=== PATIENT | female | born 1965 | race Caucasian/White ===

== ENCOUNTER 2018-11-12 19:41 | Emergency (ER) | payer BC, SELFPAY ==
[2018-11-12 19:41] VITALS: BP 111/75; PULSE 114; RESP 16; TEMP 36.3; O2SAT 97; BMI 26.4
--- NOTE | 2018-11-12 19:45 | ED.RN ---
Asked pt twice if she wanted to file workman's compensation, she declined both times. pt states she has a herniated disc from 20 yrs ago and believes this is the cause.
--- NOTE | 2018-11-12 20:21 | ED.VISSUMM ---
- ER Visit Summary Date of Service: 11/12/18 Chief Complaint: Back pain History of Present Illness: The patient is a 53 F presenting with back pain. She states this started while at work. She states she was bending over and began having pain in her lower back. It does not radiate to her legs. She has no bowel or bladder incontinence. She has tried ibuprofen at home. She states it feels like her muscles are spasming. Denies fever or other complaints. Physical Examination: Vitals are stable. Patient is afebrile. Alert no acute distress. HEENT exam is unremarkable. Neck is supple. Lungs are clear and equal bilaterally. Heart is regular rate and rhythm. Back: bilateral paraspinal lumbar muscle tenderness, no midline tenderness Extremities are unremarkable. Skin is warm and dry. No focal neurologic deficit. Normal strength and sensation Remainder of exam is unremarkable. Emergency Department Course and Treatment: Patient was given Toradol, Norflex IM. She is given prescription for Naprosyn and Flexeril. She is advised to follow up with her primary care physician. Advised return to ED if worsening complaints. Disposition: Discharge home Impression: Lumbar strain This note was generated with [employer] dictation software. It may contain incorrect words, spelling, and punctuation that were not noted in review of the chart prior to signing ED Disposition - Plan for ED Patient: Referrals: Chao Shoemaker III, MD [Primary Care Provider] -
--- NOTE | 2018-11-12 20:24 | ED.DEP ---
ED Disposition - Plan for ED Patient: Instructions: ED Sprain Strain Lumbar Prescriptions: Naproxen [Naprosyn] 500 mg PO BID PRN #20 tablet Cyclobenzaprine [Flexeril] 10 mg PO TID PRN #20 tablet PRN Reason: Muscle Spasm Referrals: Chao Shoemaker III, MD [Primary Care Provider] -
[2018-11-12] MEDS: Ketorolac 60 MG/2 ML Vial IM (20:59)
[2018-11-12] MEDS: Orphenadrine 60 MG/2 ML Ampul IM (20:59)
[2018-11-12 21:17] VITALS: BP 129/84; PULSE 71; RESP 16; O2SAT 96
== END 2018-11-12 21:18 | disposition home or self-care (01) ==
LOC: ED 20:25
PROVIDERS: Emergency Provider Emergency Medicine; Family Provider Family Medicine; PCP Family Medicine
DX: S39.012A Strain of muscle, fascia and tendon of lower back, initial encounter (principal); X50.1XXA Overexertion from prolonged static or awkward postures, initial encounter; Y93.9 Activity, unspecified; Y92.89 Other specified places as the place of occurrence of the external cause; Y99.0 Civilian activity done for income or pay; E11.9 Type 2 diabetes mellitus without complications; I10 Essential (primary) hypertension; F31.9 Bipolar disorder, unspecified; Z79.84 Long term (current) use of oral hypoglycemic drugs; Z79.82 Long term (current) use of aspirin; Z79.899 Other long term (current) drug therapy
CPT/HCPCS: 96372; 99282

== ENCOUNTER → 2019-10-03 09:34 | Outpatient (CLI) | payer BC, SELFPAY ==
--- NOTE | 2019-10-03 09:35 | RAD_ITS ---
STUDY: AIR-CONTRAST UPPER GI SERIES. REASON FOR EXAM: Female, 54 years old. VOMITING X 3 MOS., WT LOSS 12#. 23 IMAGES FLUOROSCOPY TIME (if supplied): ( 46 seconds ) minutes/seconds TECHNIQUE: The patient ingested barium. Multiple images of the esophagus, stomach and duodenum were obtained. COMPARISON: None. FINDINGS: The esophagus is unremarkable. There is no evidence of obstruction. No evidence of gastroesophageal reflux. The stomach and duodenum are unremarkable. No evidence of ulceration. No abnormalities present. IMPRESSION: Unremarkable air contrast upper GI series. Electronically Signed: Jorge Luis Pradhan, at 14:07 EST , Service support , STUDY: SMALL BOWEL FOLLOW-THROUGH EXAMINATION. REASON FOR EXAM: Female, 54 years old. VOMITING X 3 MOS., WT LOSS 12#. 23 IMAGES FLUOROSCOPY TIME (if supplied): ( 46 seconds ) minutes/seconds TECHNIQUE: The patient ingested barium. A small bowel follow-through examination was then obtained. COMPARISON: None. FINDINGS: The small bowel transit is within normal limits. There is no evidence of intrinsic or extrinsic small bowel disease. The terminal ileum is unremarkable. RAD/Upper GI/w Small Bowel IMPRESSION: Unremarkable small bowel examination. Electronically Signed: Jorge Luis Pradhan, at 14:09 EST , Service support ,
== END ==
LOC: RAD 09:34
PROVIDERS: PCP Family Medicine; Referring Provider Nurse Practitioner Family; Visit Provider Nurse Practitioner Family
DX: R11.10 Vomiting, unspecified (principal)
CPT/HCPCS: 74246; 74248

== ENCOUNTER → 2020-03-26 09:39 | Outpatient (CLI) | payer MEDICAID, SELFPAY ==
--- NOTE | 2020-03-26 10:00 | RAD_ITS ---
STUDY: X-RAY - ESOPHAGUS (BARIUM SWALLOW) WITH FLUOROSCOPY REASON FOR EXAM: Female, 54 years old. DYSPHAGIA AFTER EATING x2 MONTHS, WORSENING LAST FEW WEEKS -- NO PREVIOUS SURGERIES TECHNIQUE: 14 view(s) of the esophagus were obtained following swallowing of barium. FLUOROSCOPY TIME (if supplied): (0:32) minutes/seconds COMPARISON: None. FINDINGS: There is no demonstrated esophageal foreign body. There is no demonstrated stricture or mucosal abnormality. Normal gastroesophageal junction, without a demonstrated hiatal hernia. The patient ingested a 12 mm tablet of barium without any difficulty. Normal visualized aortic arch and descending thoracic aorta. Normal visualized pulmonary parenchyma. Normal visualized osseous structures of the thorax. RAD/Esophagus Dual Contrast IMPRESSION: Normal plain film x-ray examination (barium swallow) of the esophagus. Electronically Signed: Jorge Luis Pradhan, at 12:21 EDT , Service support ,
== END ==
PROVIDERS: PCP Family Medicine; Referring Provider Nurse Practitioner Family; Visit Provider Nurse Practitioner Family
DX: R13.10 Dysphagia, unspecified (principal)
CPT/HCPCS: 74221

== ENCOUNTER 2021-04-25 21:40 | Emergency (ER) | payer MEDICAID, SELFPAY ==
[2021-04-25 21:41] VITALS: BP 183/111; PULSE 136; RESP 18; TEMP 37; O2SAT 97; BMI 29.8
--- NOTE | 2021-04-25 21:49 | EKG12_ITS ---
Test Reason : DYSRHYTHMIA Blood Pressure : / mmHG Vent. Rate : 124 BPM Atrial Rate : 124 BPM P-R Int : 152 ms QRS Dur : 080 ms QT Int : 284 ms P-R-T Axes : 053 031 -19 degrees QTc Int : 408 ms Sinus tachycardia Nonspecific ST and T wave abnormality Abnormal ECG When compared with ECG of 30-AUG-2016 17:57, ST now depressed in Lateral leads Nonspecific T wave abnormality, worse in Anterolateral leads Confirmed by MOO HERNANDEZ, JEFF ([id number]), pictures editor CASSIUS CORTES ([id number]) on 04/28/2021 9:23:03 AM Referred By: KIKE Confirmed By:JEFF CORTÉS MD
--- NOTE | 2021-04-25 21:52 | EX.ED.DYSGE1 ---
HPI History of Present Illness Chief Complaint: Hyperglycemia Informant: patient Onset/Context/Timing Onset: - (Critical blood sugar level) Context: - (Unknown) Timing: Continuous Quality: Blood sugar greater than 600 Current Severity: Blood sugar greater than 600 Maximum Severity: Blood sugar greater than 600 Worsened by: Noncompliance with diet Relieved by: Nothing Associated Symptoms Associated Symptoms: Thirst, polydipsia and polyuria Narrative Narrative: Patient is a 55-year-old woman with type 1 diabetes. She initially was on Metformin. She is now on insulin. She does have history of lung problems. She denies hypertension, dyslipidemia. She is a smoker. Denies drinking. She denies headache, visual, ocular auditory symptoms. She denies chest pain. Denies shortness of breath. She denies vomiting or diarrhea. She denies dysuria or hematuria. She denies paresthesia, anesthesia or motor weakness. Patient states her doctor called her because of a high blood sugar level from blood work obtained earlier today. She was asked to check her blood sugar and her blood sugar at home was greater than 600. She was advised to come to the emergency department with [facility] Medical History (Updated 04/25/21 @ 23:[address] Santos Prince MD) Asthma Bipolar 1 disorder Depression Diabetes mellitus Fatty (change of) liver, not elsewhere classified HTN (hypertension) Hyperlipemia Migraine Rosacea Home Medications risperidone 1 tab PO QHS 11/12/18 [History Last Taken Unknown] amantadine HCl 100 mg PO DAILY 04/25/21 [History Last Taken Unknown] atorvastatin 20 mg PO DAILY 04/25/21 [History Last Taken Unknown] cholecalciferol (vitamin D3) [Vitamin D3] 50 mcg PO DAILY 04/25/21 [History Last Taken Unknown] dulaglutide [Trulicity] 1.5 mg SUBCUT QWEEK 04/25/21 [History Last Taken Unknown] glimepiride 2 mg PO DAILY 04/25/21 [History Last Taken Unknown] hydroxyzine pamoate 25 mg PO BID PRN 04/25/21 [History Last Taken Unknown] insulin glargine [Lantus Solostar U-100 Insulin] 26 unit SUBCUT QHS 04/25/21 [History Last Taken Unknown] lamotrigine 150 mg PO DAILY 04/25/21 [History Last Taken Unknown] metformin 500 mg PO DAILY 04/25/21 [History Last Taken Unknown] Allergy/AdvReac Type Severity Reaction Status Date / Time No Known Allergies Allergy Verified 04/25/21 21:44 Social History (Updated 04/25/21 @ 21:[address] Santos Prince MD) household members: spouse Smoking Status: Never smoker alcohol intake: former substance use type: does not use ROS ROS ED Constitutional Constitutional ED: Denies chills, fever(s), subjective, sweats or weight loss Eyes Eyes: Denies blurry vision, change in vision or diplopia ENT ENT ED: Denies ear pain, rhinorrhea or sore throat Cardiovascular Cardiovascular: Denies chest pain, orthopnea, palpitations, paroxysmal nocturnal dyspnea or racing heartbeat Respiratory/Chest Respiratory/Chest: Denies dyspnea, dyspnea on exertion, orthopnea or paroxysmal nocturnal dyspnea Gastrointestinal Gastrointestinal: Reports nausea; Denies abdominal pain, constipation, diarrhea or vomiting Genitourinary Genitourinary ED: Reports urinary frequency; Denies dysuria or hematuria Musculoskeletal Musculoskeletal: Denies arthralgias, back pain, myalgias or neck pain Integumentary Denies rash Neurologic Neurologic: Denies headache(s), paresthesias or weakness Endocrine Endocrinology: Denies polydipsia, polyphagia or polyuria Allergic/Immunologic Allergic/Immunologic ED: Denies mouth swelling, tongue swelling or urticaria EXAM Physical Exam Const Vital Signs: 04/25/21 21:41 04/25/21 22:14 Temperature 98.6 F Temperature Source Temporal Pulse Rate 136 H 111 H Respiratory Rate 18 19 H Blood Pressure 183/111 H 156/86 H Blood Pressure Mean 135 109 Pulse Ox 97 97 Oxygen Delivery Method Room Air Room Air Positive well nourished, well developed and obese General Appearance ED: well developed Nutritional Appearance: obese HEENT Reports TM's clear and dry mucous membranes HEENT Narrative: Head is atraumatic normocephalic. Ears normal. Nares patent. Posterior pharynx unremarkable. Tympanic Membrane ED: Yes TM's clear Mouth ED: Yes dry mucous membranes Mouth: dry mucous membranes Eyes PERRL and EOMs intact bilaterally General Eye ED: Negative for pale conjunctiva or scleral icterus Neck no lymphadenopathy, supple and no JVD General: Negative for tenderness Chest Wall inspection of chest normal Resp normal respiratory effort and clear to auscultation bilaterally Cardio regular rhythm, S1 normal heart sound, S2 normal heart sound and no murmurs Rate: tachycardic GI normal to inspection, nondistended, normoactive bowel sounds, non-tender and non-distended Back/Spine no CVA tenderness Thoracic Spine / Upper Back: Negative for paraspinal muscle tenderness Lumbar Spine / Lower Back: Negative for lumbar spinal tenderness Extremity normal to inspection General Extremety ED: Negative for edema or tenderness General Extremity: Negative for edema Neuro oriented x3, CN's II-XII intact bilaterally and no sensory deficits noted Sensorium / Orientation: alert Motor Exam: strength 5/5 throughout Psych mental status grossly normal Skin no rashes or lesions noted and no wounds MDM MDM MDM Narrative Medical decision making narrative: Hyperglycemia order set was initiated since blood sugars greater than 600. 2 L of normal saline was ordered. Work-up to determine if she has hyper osmolar nonketotic hyperglycemia versus DKA. If blood sugar is truly elevated will treat with insulin after 2 L normal saline has infused. EKG was obtained to assess rhythm and rule out ischemia. UA to assess for ketones and rule out urinary tract infection. Comprehensive metabolic panel to assess electrolytes, anion gap and blood sugar. Since she is clinically dehydrated also to assess renal function. Patient was informed the importance of compliant with medication and diet. When she receives her 2 L of fluid will discharge to home to follow-up with her physician. No adjustments have been made with her medications since she is not compliant with her diet. Lab Data Attestation: I reviewed the patient's lab results. Lab results narrative: Blood sugar is 449. There is no evidence of DKA. Will treat with subcu insulin. Labs: Laboratory Results - last 24 hr 04/25/21 04/25/21 04/25/21 21:56 22:00 22:00 WBC 8.1 RBC 5.01 Hgb 14.7 Hct 43.4 MCV 86.6 MCH 29.3 MCHC 33.9 RDW Std Deviation 41.6 RDW Coeff of Lizbet 13.2 Plt Count 229 MPV 9.0 Immature Gran % (Auto) 0.500 Neut % (Auto) 64.1 Lymph % (Auto) 22.6 [place] % (Auto) 11.7 H Eos % (Auto) 0.7 Baso % (Auto) 0.4 Absolute Neuts (auto) 5.2 Absolute Lymphs (auto) 1.82 Nucleated RBC % 0 Sodium 135 L Potassium 3.6 Chloride 100 Carbon Dioxide 25.0 Anion Gap 10 BUN 20 H Creatinine 1.14 H Estim Creat Clear Calc 48.15 Est GFR (MDRD) Af Amer 64 Est GFR (MDRD) Non-Af 53 L BUN/Creatinine Ratio 17.5 Glucose 449 H Calcium 9.6 Total Bilirubin 0.40 AST 32 ALT 79 H Alkaline Phosphatase 171 H Total Protein 8.2 Albumin 3.7 Globulin 4.5 H Albumin/Globulin Ratio 0.8 L Urine Color Urine Clarity Urine pH Ur Specific [place] Urine Protein Urine Glucose (UA) Urine Ketones Urine Occult Blood Urine Nitrite Urine Bilirubin Urine Urobilinogen Ur Leukocyte Esterase Urine RBC Urine WBC Ur Squamous Epith Cells Urine Bacteria Urine Mucus Acetone Level POC Glucose 466 H* 04/25/21 04/25/21 22:00 22:40 WBC RBC Hgb Hct MCV MCH MCHC RDW Std Deviation RDW Coeff of [place] Plt Count MPV Immature Gran % (Auto) Neut % (Auto) Lymph % (Auto) [place] % (Auto) Eos % (Auto) Baso % (Auto) Absolute Neuts (auto) Absolute Lymphs (auto) Nucleated RBC % Sodium Potassium Chloride Carbon Dioxide Anion Gap BUN Creatinine Estim Creat Clear Calc Est GFR (MDRD) Af Amer Est GFR (MDRD) Non-Af BUN/Creatinine Ratio Glucose Calcium Total Bilirubin AST ALT Alkaline Phosphatase Total Protein Albumin Globulin Albumin/Globulin Ratio Urine Color Yellow Urine Clarity Clear Urine pH 6.0 Ur Specific [place] 1.015 Urine Protein Negative Urine Glucose (UA) 1000 H Urine Ketones 15 H Urine Occult Blood Negative Urine Nitrite Negative Urine Bilirubin Negative Urine Urobilinogen Normal Ur Leukocyte Esterase Negative Urine RBC 0 SEEN Urine WBC 0-5 SEEN Ur Squamous Epith Cells 0-5 SEEN Urine Bacteria 0 SEEN Urine Mucus 0 SEEN Acetone Level NEGATIVE POC Glucose Rhythm Strip Rhythm Strip: Sinus Tach Rate: 132 Ectopy: None EKG Initial EKG: Interpretation: Sinus Tachycardia (Ventricular rate is 124. [place] interval is 152 ms. QRS duration 80 ms. QT duration 284 ms. There is no ossific ST-T wave changes. 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: ED Diabetic Hyperglycemia, ED Dehydration (Adult), ED Diet: Diabetes Prescriptions: No Action risperidone 3 MG tablet 1 tab PO QHS RF: 0 lamotrigine 150 mg tablet 150 mg PO DAILY RF: 0 atorvastatin 20 mg tablet 20 mg PO DAILY RF: 0 amantadine HCl 100 mg capsule 100 mg PO DAILY RF: 0 glimepiride 4 mg tablet 2 mg PO DAILY RF: 0 metformin 500 mg tablet extended release 24 hr 500 mg PO DAILY RF: 0 hydroxyzine pamoate 25 mg Capsule 25 mg PO BID PRN (Reason: Anxiety) RF: 0 Lantus Solostar U-100 Insulin 100 unit/mL (3 mL) insulin pen 26 unit SUBCUT QHS RF: 0 cholecalciferol (vitamin D3) [Vitamin D3] 50 mcg (2,000 unit) tablet 50 mcg PO DAILY RF: 0 Trulicity 0.75 mg/0.5 mL pen injector 1.5 mg SUBCUT QWEEK RF: 0 Primary Care Provider: Payam Schultz Referrals: Payam Schultz MD [Primary Care Provider] - 3-5 Days Activity Restrictions/Additional Instructions: It is important that you are compliant with your diet. Poor control could lead to premature heart disease, kidney disease, stroke and blood supply to your feet which may result in amputation. Disposition Disposition: Home, Self Care
[2021-04-25 22:01] LABS: Bedside Glucose 466 mg/dL (70-110)
[2021-04-25 22:09] LABS: Absolute Lymphocyte Count 1.82 X10^3/uL (0.83-4.51); Absolute Neutrophil Count 5.2 X10^3/uL (2.0-7.7); Basophil# 0.03 X10^3/uL; Basophil% 0.4 % (0-1); Eosinophil# 0.06 X10^3/uL; Eosinophils% 0.7 % (0-5); Hematocrit 43.4 % (37-47); Hemoglobin 14.7 g/dL (12.0-15.0); Lymphocyte # 1.82 X10^3/ul (0.83-4.51); Lymphocyte % 22.6 % (19-41); Mean Corp Hgb Conc 33.9 g/dL (32-36); Mean Corpuscular Hgb 29.3 pg (27.0-32.0); Mean Corpuscular Volume 86.6 fL (81-99); Monocyte# 0.94 X10^3/uL; Monocyte% 11.7 % (0-10); NRBC Flagged by Analyzer 0 % (0-5); Neutrophil # 5.17 X10^3/uL (2.7-7.7); Neutrophil % 64.1 % (47-70); Platelet Count 229 K/mm3 (150-450); RBC Distribution Width CV 13.2 % (11.6-14.6); RBC Distribution Width SD 41.6 fl (35.1-43.9); Red Blood Count 5.01 M/mm3 (4.2-5.4); White Blood Count 8.1 K/mm3 (4.4-11.0)
[2021-04-25] MEDS: 0.9% Normal Saline 1,000 ML 999 ML IV ×2 (22:10→23:06)
[2021-04-25 22:14] VITALS: BP 156/86; PULSE 111; RESP 19; O2SAT 97
[2021-04-25 22:33] LABS: ALB/GLOB Ratio 0.8 RATIO (0.9-2.4); AST(SGOT) 32 U/L (15-37); Alanine Aminotransfer ALT/SGPT 79 U/L (13-56); Albumin, Serum 3.7 g/dL (3.2-5.0); Alkaline Phosphatase 171 U/L (45-117); Anion Gap 10 (5-15); BUN 20 mg/dL (7-18); BUN/Creat Ratio 17.5 RATIO (10-20); Calcium,Total 9.6 mg/dL (8.5-10.1); Chloride 100 mmol/L (98-107); Creatinine, Serum 1.14 mg/dL (0.55-1.02); EST Glomerular Filtration Rate 53 mL/min (>60); Est Glom Filt Rate - Afr Amer 64 mL/min (>60); Estimated Creatinine Clearance 48.15 ml/min; Globulin 4.5 g/dL (2.2-4.2); Glucose 449 mg/dL (74-106); Potassium 3.6 mmol/L (3.5-5.1); Protein, Total 8.2 g/dL (6.4-8.2); Sodium Level 135 mmol/L (136-145)
[2021-04-25 22:48] LABS: Bacteria 0 SEEN /hpf (None Seen); Mucous, Urine 0 SEEN /hpf (<or=2+); Red Blood Cells-Urine 0 SEEN /hpf (0-5)
[2021-04-25 22:51] LABS: Color, Urine Yellow (Yellow); Glucose, Dipstick 1000 mg/dl (Normal); Ketone-Dipstick 15 mg/dl (Negative); Leukocyte Esterase-Dipstick Negative /ul (Negative); Nitrite-Dipstick Negative (Negative); Occult Blood-Urine Negative /ul (Negative); Protein-Dipstick Negative (Negative); Specific Gravity, Urine 1.015 (1.002-1.030); Urine Bilirubin Dipstick Negative (Negative); Urine Clarity Clear (Clear); Urine Urobilinogen Normal (Normal)
[2021-04-25 22:58] LABS: Squamous Epithelial Cells - UA 0-5 SEEN /hpf (5-10); White Blood Cells 0-5 SEEN /hpf (0-5)
[2021-04-25] MEDS: Insulin Lispro 100 UNIT/ML INSULN.PEN 12 UNIT SC (23:07)
[2021-04-25] MEDS: COVID-19 VAC,AD26(JANSSEN)/PF 0.5 ML SYRINGE IM (23:09)
[2021-04-26 00:01] VITALS: BP 167/74; PULSE 98; RESP 16; O2SAT 99
== END 2021-04-26 00:02 | disposition home or self-care (01) ==
PROVIDERS: Emergency Provider Emergency Medicine; PCP Family Medicine
DX: E10.65 Type 1 diabetes mellitus with hyperglycemia (principal); E86.0 Dehydration; I10 Essential (primary) hypertension; E78.5 Hyperlipidemia, unspecified; F31.9 Bipolar disorder, unspecified; E66.9 Obesity, unspecified; R00.0 Tachycardia, unspecified; Z79.4 Long term (current) use of insulin; Z79.899 Other long term (current) drug therapy
CPT/HCPCS: 80053; 81001; 82009; 82962; 85025; 91303; 93005; 96360; 96361; 99284; J7030; A4216

== ENCOUNTER 2021-04-27 14:00 | Emergency (ER) | payer MEDICAID, SELFPAY ==
[2021-04-27 14:00] VITALS: BP 151/84; PULSE 146; RESP 18; TEMP 36.6; O2SAT 98; BMI 29.8
--- NOTE | 2021-04-27 14:00 | EKG12_ITS ---
Test Reason : INCREASED HR Blood Pressure : / mmHG Vent. Rate : 141 BPM Atrial Rate : 141 BPM P-R Int : 128 ms QRS Dur : 072 ms QT Int : 354 ms P-R-T Axes : 025 027 008 degrees QTc Int : 542 ms Poor data quality, interpretation may be adversely affected Sinus tachycardia Otherwise normal ECG Confirmed by MOO HERNANDEZ, JEFF ([id number]), society editor CASSIUS CORTES ([id number]) on 05/02/2021 9:08:06 AM Referred By: Confirmed By:JEFF CORTÉS MD
--- NOTE | 2021-04-27 15:05 | EX.ED.DYSGE1 ---
HPI History of Present Illness Chief Complaint: Hyperglycemia Informant: patient Onset/Context/Timing Onset: Days (3) Context: Gradual Onset Timing: Continuous Quality: Lightheadedness Location: Generalized Worsened by: Nothing Relieved by: Nothing Narrative Narrative: Patient presents with elevated blood sugars for the past 3 days. Patient states she has been feeling lightheaded. Patient states her sugar at home today was 568. Patient saw her primary care physician 2 days ago. Patient states that at that time she received a tetanus and pneumonia vaccine. Patient came to the emergency department later that day and was given the Db & Db Covid vaccine. Patient states that while here in the emergency department 2 days ago, her blood sugars were 600. Patient denies any nausea or vomiting. Patient admits to some urinary frequency and polydipsia. Patient states she has been taking her insulin at home with minimal improvement. [facility] Medical History Asthma Bipolar 1 disorder Depression Diabetes mellitus Fatty (change of) liver, not elsewhere classified HTN (hypertension) Hyperlipemia Migraine Rosacea Home Medications risperidone 1 tab PO QHS 11/12/18 [History Last Taken Unknown] amantadine HCl 100 mg PO DAILY 04/25/21 [History Last Taken Unknown] atorvastatin 20 mg PO DAILY 04/25/21 [History Last Taken Unknown] cholecalciferol (vitamin D3) [Vitamin D3] 50 mcg PO DAILY 04/25/21 [History Last Taken Unknown] dulaglutide [Trulicity] 1.5 mg SUBCUT QWEEK 04/25/21 [History Last Taken Unknown] glimepiride 2 mg PO DAILY 04/25/21 [History Last Taken Unknown] hydroxyzine pamoate 25 mg PO BID PRN 04/25/21 [History Last Taken Unknown] insulin glargine [Lantus Solostar U-100 Insulin] 26 unit SUBCUT QHS 04/25/21 [History Last Taken Unknown] lamotrigine 150 mg PO DAILY 04/25/21 [History Last Taken Unknown] metformin 500 mg PO DAILY 04/25/21 [History Last Taken Unknown] Allergy/AdvReac Type Severity Reaction Status Date / Time No Known Allergies Allergy Verified 04/27/21 14:03 no surgical history Social History household members: spouse Smoking Status: Never smoker alcohol intake: former substance use type: does not use ROS ROS ED Constitutional Constitutional ED: Denies chills or fever(s) Eyes Eyes: Denies blurry vision or change in vision ENT ENT ED: Denies rhinorrhea or sore throat Cardiovascular Cardiovascular: Denies chest pain or palpitations Respiratory/Chest Respiratory/Chest: Denies cough or dyspnea Gastrointestinal Gastrointestinal: Denies nausea or vomiting Genitourinary Genitourinary ED: Reports urinary frequency; Denies dysuria or hematuria Musculoskeletal Musculoskeletal: Denies back pain or neck pain Integumentary Denies abscess or rash Neurologic Neurologic: Denies headache(s) or weakness Endocrine Endocrinology: Reports polydipsia and polyuria Allergic/Immunologic Allergic/Immunologic ED: Denies mouth swelling or urticaria EXAM Physical Exam Const Vital Signs: 04/27/21 14:00 04/27/21 14:45 Temperature 98 F Temperature Source Temporal Pulse Rate 146 H Respiratory Rate 18 Respiratory Pattern Normal Blood Pressure 151/84 H Blood Pressure Mean 106 Pulse Ox 98 Oxygen Delivery Method Room Air Positive well nourished and well developed General Appearance ED: well developed HEENT Reports moist mucous membranes Neck supple and no JVD Resp normal respiratory effort and clear to auscultation bilaterally Cardio regular rhythm and no murmurs Rate: tachycardic GI normal to inspection, nondistended, normoactive bowel sounds and non-tender Palpation: soft Extremity normal to inspection General Extremety ED: Negative for edema or tenderness General Extremity: Negative for edema Neuro oriented x3, CN's II-XII intact bilaterally and no sensory deficits noted Sensorium / Orientation: alert Motor Exam: strength 5/5 throughout Psych mental status grossly normal Skin no rashes or lesions noted MDM MDM MDM Narrative Medical decision making narrative: EKG was obtained. On my interpretation, it showed a sinus tachycardia with a rate of 141. [place] interval, QRS interval, and QTc intervals were all normal. [place] was normal. There are no acute ST or T wave changes. Patient was given IV fluids. Patient's heart rate improved after this. CBC and comprehensive metabolic profile were obtained. Glucose was 299. Electrolytes were normal. Anion gap was normal. Serum acetone was negative. Urinalysis does not show any evidence of urinary tract infection. Patient is feeling better on reevaluation. Patient was instructed to follow-up with her primary care physician as scheduled. Patient understood and was agreeable with the plan. All questions were answered. Lab Data Attestation: I reviewed the patient's lab results. Labs: Laboratory Results - last 24 hr 04/27/21 04/27/21 04/27/21 14:40 14:40 14:40 WBC 7.3 RBC 5.12 Hgb 15.0 Hct 44.1 MCV 86.1 MCH 29.3 MCHC 34.0 RDW Std Deviation 42.6 RDW Coeff of Lizbet 13.6 Plt Count 232 MPV 9.0 Immature Gran % (Auto) 0.500 Neut % (Auto) 69.4 Lymph % (Auto) 16.2 L [place] % (Auto) 13.0 H Eos % (Auto) 0.5 Baso % (Auto) 0.4 Absolute Neuts (auto) 5.0 Absolute Lymphs (auto) 1.18 Nucleated RBC % 0 Sodium 132 L Potassium 3.7 Chloride 98 Carbon Dioxide 26.0 Anion Gap 8 BUN 15 Creatinine 1.14 H Estim Creat Clear Calc 48.15 Est GFR (MDRD) Af Amer 64 Est GFR (MDRD) Non-Af 53 L BUN/Creatinine Ratio 13.2 Glucose 299 H Calcium 9.8 Total Bilirubin 0.60 AST 124 H ALT 122 H Alkaline Phosphatase 98 Total Protein 8.1 Albumin 3.5 Globulin 4.6 H Albumin/Globulin Ratio 0.8 L Urine Color Urine Clarity Urine pH Ur Specific [place] Urine Protein Urine Glucose (UA) Urine Ketones Urine Occult Blood Urine Nitrite Urine Bilirubin Urine Urobilinogen Ur Leukocyte Esterase Urine RBC Urine WBC Ur Squamous Epith Cells Ur Transition Epith Cell Ur Renal Epithelial Cell Urine Bacteria Urine Mucus Acetone Level NEGATIVE 04/27/21 16:10 WBC RBC Hgb Hct MCV MCH MCHC RDW Std Deviation RDW Coeff of Lizbet Plt Count MPV Immature Gran % (Auto) Neut % (Auto) Lymph % (Auto) [place] % (Auto) Eos % (Auto) Baso % (Auto) Absolute Neuts (auto) Absolute Lymphs (auto) Nucleated RBC % Sodium Potassium Chloride Carbon Dioxide Anion Gap BUN Creatinine Estim Creat Clear Calc Est GFR (MDRD) Af Amer Est GFR (MDRD) Non-Af BUN/Creatinine Ratio Glucose Calcium Total Bilirubin AST ALT Alkaline Phosphatase Total Protein Albumin Globulin Albumin/Globulin Ratio Urine Color Yellow Urine Clarity Clear Urine pH 6.0 Ur Specific [place] 1.010 Urine Protein Negative Urine Glucose (UA) 1000 H Urine Ketones 15 H Urine Occult Blood Negative Urine Nitrite Negative Urine Bilirubin Negative Urine Urobilinogen Normal Ur Leukocyte Esterase 25 H Urine RBC 0 SEEN Urine WBC 0-5 SEEN Ur Squamous Epith Cells 0 SEEN Ur Transition Epith Cell 0-5 SEEN Ur Renal Epithelial Cell 0 SEEN Urine Bacteria 0 SEEN Urine Mucus 0 SEEN Acetone Level EKG Initial EKG: Attestation: I personally reviewed and interpreted this EKG as follows: Interpretation: No Acute Injury Pattern and Sinus Tachycardia (141) Prior EKG tracings: available for review Prior: Unchanged (08/30/2016) Discharge Plan Triage Chief Complaint: Hyperglycemia ED Provider: Arie Hayes Dx/Rx/DC Orders Clinical Impression: Hyperglycemia Instructions: ED Diabetic Hyperglycemia Prescriptions: No Action risperidone 3 MG tablet 1 tab PO QHS RF: 0 lamotrigine 150 mg tablet 150 mg PO DAILY RF: 0 atorvastatin 20 mg tablet 20 mg PO DAILY RF: 0 amantadine HCl 100 mg capsule 100 mg PO DAILY RF: 0 glimepiride 4 mg tablet 2 mg PO DAILY RF: 0 metformin 500 mg tablet extended release 24 hr 500 mg PO DAILY RF: 0 hydroxyzine pamoate 25 mg Capsule 25 mg PO BID PRN (Reason: Anxiety) RF: 0 Lantus Solostar U-100 Insulin 100 unit/mL (3 mL) insulin pen 26 unit SUBCUT QHS RF: 0 cholecalciferol (vitamin D3) [Vitamin D3] 50 mcg (2,000 unit) tablet 50 mcg PO DAILY RF: 0 Trulicity 0.75 mg/0.5 mL pen injector 1.5 mg SUBCUT QWEEK RF: 0 Primary Care Provider: Payam Schultz Referrals: Payam Schultz MD [Primary Care Provider] - [facility] appointment Disposition Disposition: Home, Self Care
[2021-04-27] MEDS: 0.9% Normal Saline 1,000 ML 1000 ML IV (15:14)
[2021-04-27 15:16] LABS: Absolute Lymphocyte Count 1.18 X10^3/uL (0.83-4.51); Basophil# 0.03 X10^3/uL; Basophil% 0.4 % (0-1); Eosinophil# 0.04 X10^3/uL; Eosinophils% 0.5 % (0-5); Hematocrit 44.1 % (37-47); Lymphocyte # 1.18 X10^3/ul (0.83-4.51); Lymphocyte % 16.2 % (19-41); Mean Corpuscular Hgb 29.3 pg (27.0-32.0); Mean Corpuscular Volume 86.1 fL (81-99); Monocyte# 0.95 X10^3/uL; NRBC Flagged by Analyzer 0 % (0-5); Neutrophil # 5.04 X10^3/uL (2.7-7.7); Neutrophil % 69.4 % (47-70); Platelet Count 232 K/mm3 (150-450); RBC Distribution Width CV 13.6 % (11.6-14.6); RBC Distribution Width SD 42.6 fl (35.1-43.9); Red Blood Count 5.12 M/mm3 (4.2-5.4); White Blood Count 7.3 K/mm3 (4.4-11.0)
[2021-04-27 15:41] LABS: ALB/GLOB Ratio 0.8 RATIO (0.9-2.4); AST(SGOT) 124 U/L (15-37); Alanine Aminotransfer ALT/SGPT 122 U/L (13-56); Albumin, Serum 3.5 g/dL (3.2-5.0); Alkaline Phosphatase 98 U/L (45-117); Anion Gap 8 (5-15); BUN 15 mg/dL (7-18); BUN/Creat Ratio 13.2 RATIO (10-20); Calcium,Total 9.8 mg/dL (8.5-10.1); Chloride 98 mmol/L (98-107); Creatinine, Serum 1.14 mg/dL (0.55-1.02); EST Glomerular Filtration Rate 53 mL/min (>60); Est Glom Filt Rate - Afr Amer 64 mL/min (>60); Estimated Creatinine Clearance 48.15 ml/min; Globulin 4.6 g/dL (2.2-4.2); Glucose 299 mg/dL (74-106); Potassium 3.7 mmol/L (3.5-5.1); Protein, Total 8.1 g/dL (6.4-8.2); Sodium Level 132 mmol/L (136-145)
[2021-04-27 16:14] LABS: Bacteria 0 SEEN /hpf (None Seen); Mucous, Urine 0 SEEN /hpf (<or=2+); Red Blood Cells-Urine 0 SEEN /hpf (0-5); Squamous Epithelial Cells - UA 0 SEEN /hpf (5-10)
[2021-04-27 16:18] LABS: Color, Urine Yellow (Yellow); Glucose, Dipstick 1000 mg/dl (Normal); Ketone-Dipstick 15 mg/dl (Negative); Leukocyte Esterase-Dipstick 25 /ul (Negative); Nitrite-Dipstick Negative (Negative); Occult Blood-Urine Negative /ul (Negative); Protein-Dipstick Negative (Negative); Urine Bilirubin Dipstick Negative (Negative); Urine Clarity Clear (Clear); Urine Urobilinogen Normal (Normal)
[2021-04-27 16:30] LABS: Transitional Epithelial - Ur 0-5 SEEN /hpf (0-5); White Blood Cells 0-5 SEEN /hpf (0-5)
[2021-04-27 16:31] LABS: Renal Epithelial Cells 0 SEEN /hpf (0-5)
[2021-04-27 17:29] VITALS: BP 140/88; PULSE 99; RESP 15; O2SAT 98
== END 2021-04-27 17:32 | disposition home or self-care (01) ==
PROVIDERS: Emergency Provider Emergency Medicine; PCP Family Medicine
DX: E11.65 Type 2 diabetes mellitus with hyperglycemia (principal); I10 Essential (primary) hypertension; Z79.4 Long term (current) use of insulin; Z79.899 Other long term (current) drug therapy
CPT/HCPCS: 80053; 81001; 82009; 85025; 93005; 96360; 99283; J7030; A4216